=== PATIENT | female | born 1995 | race Caucasian/White ===

== ENCOUNTER 2017-10-14 21:20 | Emergency (ER) | payer SELFPAY ==
--- NOTE | 2017-10-14 22:22 | EDPHY ---
H & P Stated Complaint: CHRONIC CONSTIPATION SINCE SEPTEMBER/TRIED LAXATIVES, SUPPOSITORIES Time Seen by Provider: 10/14/17 22:01 HPI/ROS: HPI The patient presents with constipation which has been present for about 1 month. This started slowly and has gotten progressively worse. Before it began she would have about 2 formed bowel movements a day without difficulty. Now she is having 1 small hard bowel movement about once a day with some effort and straining. She denies any dark or bloody stools. She has tried numerous laxatives including MiraLax, suppositories, prune pills. She has changed her diet in his drinking lots of water and eating fruits and vegetables. She does have a job at a [employer] during the day and is able to use the bathroom there. She does report she feels bloated. She does not have any nausea or vomiting. She denies any early satiety or weight loss or weight gain. REVIEW OF SYSTEMS Constitutional: No fever, no chills. Eyes: No discharge. ENT: No sore throat. Cardiovascular: No chest pain, no palpitations. Respiratory: No cough, no shortness of breath. Gastrointestinal: No abdominal pain, no vomiting. Genitourinary: No hematuria. Musculoskeletal: No back pain. Skin: No rashes. Neurological: No headache. PMHx: No abdominal surgeries Soc Hx: Here with her mother PHYSICAL General Appearance: Alert, no distress Eyes: Pupils equal and round no pallor or injection ENT, Mouth: Mucous membranes moist Respiratory: There are no retractions, lungs are clear to auscultation Cardiovascular: Regular rate and rhythm Gastrointestinal: Abdomen is mild to moderately distended, bowel sounds are present, there is no tenderness Neurological: A&O, moves all extremities Skin: Warm and dry, no rashes Musculoskeletal: Neck is supple non tender Extremities: symmetrical, full range of motion Psychiatric: Patient is oriented X 3, there is no agitation Source: Patient Exam Limitations: No limitations - Personal History LMP (Females 10-55): Over 28 Days Ago Current Tetanus Diphtheria and Acellular Pertussis (TDAP): Yes - Medical/Surgical History Hx Asthma: No Hx Chronic Respiratory Disease: No Hx Diabetes: No Hx Cardiac Disease: No Hx Renal Disease: No Hx Cirrhosis: No Hx Alcoholism: No Hx HIV/AIDS: No Hx Splenectomy or Spleen Trauma: No Other PMH: DENIES - Social History Smoking Status: Never smoked Constitutional: Initial Vital Signs Temperature (C) 37.2 C 10/14/17 21:23 Heart Rate 87 10/14/17 21:23 Respiratory Rate 16 10/14/17 21:23 Blood Pressure 118/64 10/14/17 21:23 O2 Sat (%) 100 10/14/17 21:23 O2 Delivery Mode Room Air Allergies/Adverse Reactions: No Known Allergies Allergy (Verified 10/14/17 21:27) Home Medications: Medication Instructions Recorded Peg 3350/Na Sulf,Bicarb,Cl/KCl 4,000 ml PO ONCE #1 btl 10/14/17 [Golytely (RX)] Medical Decision Making Differential Diagnosis: 22-year-old female presents with 1 month of constipation having small hard bowel movements only about once per day. She has tried multiple laxatives including MiraLax, suppositories. She has modified her diet. On exam, she does have abdominal bloating without any focal tenderness. She does not have any weight loss, weight gain, early satiety, lethargy or fatigue. I suspect she does have constipation though cause is not entirely clear. I have considered obstructive process, however she does not have any nausea or vomiting. I have considered malignancy, however she does not have any lethargy , fatigue, weight loss. Given that she is motivated to treat this with aggressive measures. I will prescribe her GoLYTELY and she is able to use it this weekend. If her symptoms do not improve, then she has follow up with her primary care doctor early next week for further testing if indicated. She is happy with this plan. Departure - Departure Disposition: Home, Routine, Self-Care Clinical Impression: Constipation, Abdominal bloating Condition: Good Instructions: Constipation (ED) Additional Instructions: Please try the medication I am prescribing you. You should drink it over the course of the day. This should allow you to have normal bowel movements and get rid of any stool that may be in her belly. You should take 240 mL every 15 min until your stools are clear. You can stop taking it once your bowel movements have improved. Please follow-up with Dr. Lynn afterwards to see her you're doing. Referrals: Phoenix Lynn MD [Primary Care Provider] - As per Instructions Stand Alone Forms: Work Excuse Prescriptions: Peg 3350/Na Sulf,Bicarb,Cl/KCl [Golytely (RX)] 4,000 ml PO ONCE #1 btl
[2017-10-14 22:54] VITALS: BP 114/74
== END 2017-10-14 22:53 | disposition home or self-care (01) ==
DX: K59.09 Other constipation (principal)